=== PATIENT | male | born 2000 | race Two or more races ===

== ENCOUNTER 2018-02-25 07:06 | Emergency (ER) | payer OTHER ==
[2018-02-25 08:33] LABS: ABSOLUTE EOSINOPHILS # (AUTO) 0.2 10^3/uL (0.0-0.6); ABSOLUTE LYMPHOCYTES (AUTO) 2.3 10^3/uL (0.5-4.7); ABSOLUTE MONOCYTES (AUTO) 0.7 10^3/uL (0.1-1.4); ABSOLUTE NEUT (AUTO) 4.4 10^3/uL (1.7-8.2); BASOPHILS % (AUTO) 0.6 % (0-2); EOSINOPHILS % (AUTO) 2.3 % (0-6); HEMATOCRIT 44.1 % (37.9-51.0); HEMOGLOBIN 14.9 g/dL (13.5-17.0); LYMPHOCYTES % (AUTO) 30.6 % (13-45); MEAN CORPUSCULAR HEMOGLOBIN 28.6 pg (27.0-33.4); MEAN CORPUSCULAR HGB CONC 33.9 g/dL (32.0-36.0); MEAN CORPUSCULAR VOLUME 85 fl (80-97); MONOCYTES % (AUTO) 8.8 % (3-13); PLATELET COUNT 291 10^3/uL (150-450); RED BLOOD COUNT 5.21 10^6/uL (4.35-5.55); RED CELL DISTRIBUTION WIDTH 13.9 % (11.5-14.0); SEGMENTED NEUTROPHILS % (AUTO) 57.7 % (42-78); TOTAL CELLS COUNTED % (AUTO) 100 %; WHITE BLOOD COUNT 7.6 10^3/uL (4.0-10.5)
[2018-02-25 08:35] LABS: APPEARANCE,URINE CLEAR; BILIRUBIN,URINE NEGATIVE (NEGATIVE); COLOR,URINE YELLOW; GLUCOSE, URINE NEGATIVE (NEGATIVE); KETONES,URINE NEGATIVE (NEGATIVE); LEUKOCYTE ESTERASE,URINE NEGATIVE (NEGATIVE); NITRITE,URINE NEGATIVE (NEGATIVE); PROTEIN,URINE NEGATIVE (NEGATIVE); URINE SPECIFIC GRAVITY 1.024; UROBILINOGEN,URINE NEGATIVE mg/dL (<2.0)
[2018-02-25 08:53] LABS: ALANINE AMINOTRANSFERASE 48 U/L (10-40); ALBUMIN 4.8 g/dL (3.7-5.6); ALKALINE PHOSPHATASE 64 U/L (65-260); ANION GAP 14 (5-19); ASPARTATE AMINO TRANSFERASE 41 U/L (10-45); BILIRUBIN,DIRECT 0.3 mg/dL (0.0-0.4); BILIRUBIN,TOTAL 0.5 mg/dL (0.2-1.3); BLOOD UREA NITROGEN 16 mg/dL (7-20); CALCIUM 9.6 mg/dL (8.4-10.2); CARBON DIOXIDE 25 mmol/L (22-30); CHLORIDE 108 mmol/L (98-107); CREATINE KINASE 343 U/L (55-170); GLUCOSE 67 mg/dL (75-110); POTASSIUM 4.6 mmol/L (3.6-5.0); SODIUM 146.7 mmol/L (137-145); TOTAL PROTEIN 8.6 g/dL (6.3-8.2)
[2018-02-25 09:05] LABS: CREATINE KINASE MB 1.98 ng/mL (<4.55); TROPONIN I < 0.012 ng/mL
--- NOTE | 2018-02-25 09:51 | RADIOLOGY REPORT (SQ) ---
EXAM DESCRIPTION: CT HEAD WITHOUT COMPLETED DATE/TIME: 02/25/2018 9:34 am REASON FOR STUDY: syncope COMPARISON: None. TECHNIQUE: Axial images acquired through the brain without intravenous contrast. Images reviewed wi th bone, brain and subdural windows. Additional sagittal and coronal reconstructions were generated. Images stored on PACS. All CT scanners at this facility use dose modulation, iterative reconstruction, and/or weight based d osing when appropriate to reduce radiation dose to as low as reasonably achievable (ALARA). [facility]: Dose Right [facility]: CareDose [facility]: Dose Right [facility]: Teradose 4D [facility]: Guerrilla RF RADIATION DOSE: CT Rad equipment meets quality standard of care and radiation dose reduction techniq ues were employed. CTDIvol: 53.2 mGy. DLP: 1097 mGy-cm. mGy. LIMITATIONS: None. FINDINGS: VENTRICLES: Normal size and contour. CEREBRUM: No masses. No hemorrhage. No midline shift. No evidence for acute infarction. Normal gra y/white matter differentiation. No areas of low density in the white matter. CEREBELLUM: No masses. No hemorrhage. No alteration of density. No evidence for acute infarction. EXTRAAXIAL SPACES: No fluid collections. No masses. ORBITS AND GLOBE: No intra- or extraconal masses. Normal contour of globe without masses. CALVARIUM: No fracture. PARANASAL SINUSES: No fluid or mucosal thickening. SOFT TISSUES: No mass or hematoma. OTHER: No other significant finding. IMPRESSION: NORMAL BRAIN CT WITHOUT CONTRAST. EVIDENCE OF ACUTE STROKE: NO. COMMENT: Quality ID # [id number]: Final reports with documentation of one or more dose reduction techniques (e.g., Automated exposure control, adjustment of the mA and/or kV according to patient size, use of iterative reconstruction technique) TECHNICAL DOCUMENTATION: JOB ID: [id number] [employer]- All Rights Reserved Reading location - IP/workstation name: [email or web address]
[2018-02-25] MEDS: NORMAL SALINE 1000 ML 1,000 ML IV PRN ×2 (10:14→10:18)
--- NOTE | 2018-02-25 12:07 | ER Document Report ---
ED General - General Chief Complaint: Passed Out Prior to Arrival Stated Complaint: DIZZINESS Time Seen by Provider: 02/25/18 08:50 TRAVEL OUTSIDE OF THE [place] IN LAST 30 DAYS: No - HPI Notes: Patient coming in for evaluation of 2 syncopal episodes. 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 Patient has no other past medical history except for passing out a few days prior due to heat exhaustion while doing PT in the afternoons. Patient states no other extraneous activity other than his regular scheduled PT in the afternoons on days. No recent marches no recent fun runs patient otherwise is resting comfortably, evaluation denies any head pain chest pain abdominal pain prior to during or after any of the falls patient states he did hit his nose and currently his nose is hurting. - Related Data Allergies/Adverse Reactions: No Known Allergies Allergy (Unverified 02/25/18 07:13) Past Medical History - Social History Smoking Status: Never Smoker Chew tobacco use (# tins/day): No Frequency of alcohol use: None Drug Abuse: None Family History: None Patient has suicidal ideation: No Patient has homicidal ideation: No Renal/ Medical History: Denies: Hx Peritoneal Dialysis Review of Systems - Review of Systems Constitutional: No symptoms reported EENT: No symptoms reported Cardiovascular: Syncope Respiratory: No symptoms reported Gastrointestinal: No symptoms reported Genitourinary: No symptoms reported Male Genitourinary: No symptoms reported Musculoskeletal: No symptoms reported Skin: No symptoms reported Hematologic/Lymphatic: No symptoms reported Neurological/Psychological: No symptoms reported -: Yes All other systems reviewed and negative Physical Exam - Vital signs Vitals: Temp Pulse Resp BP Pulse Ox 98.9 F 71 16 134/51 H 99 02/25/18 07:17 02/25/18 07:17 02/25/18 07:17 02/25/18 07:17 02/25/18 07:17 Interpretation: Normal - General General appearance: Appears well, Alert - HEENT Head: Normocephalic, Atraumatic Eyes: Normal Pupils: PERRL - Respiratory Respiratory status: No respiratory distress Chest status: Nontender Breath sounds: Normal Chest palpation: Normal - Cardiovascular Rhythm: Regular Heart sounds: Normal auscultation Murmur: No - Abdominal Inspection: Normal Distension: No distension Bowel sounds: Normal Tenderness: Nontender Organomegaly: No organomegaly - Back Back: Normal, Nontender - Extremities General upper extremity: Normal inspection, Nontender, Normal color, Normal ROM , Normal temperature General lower extremity: Normal inspection, Nontender, Normal color, Normal ROM , Normal temperature, Normal weight bearing. No: Sarah's sign - Neurological Neuro grossly intact: Yes Cognition: Normal Orientation: AAOx4 Lyn Coma Scale Eye Opening: Spontaneous [place] Coma Scale Verbal: Oriented Lyn Coma Scale Motor: Obeys Commands [place] Coma Scale Total: 15 Speech: Normal Motor strength normal: LUE, RUE, LLE, RLE Sensory: Normal - Psychological Associated symptoms: Normal affect, Normal mood - Skin Skin Temperature: Warm Skin Moisture: Dry Skin Color: Normal Course - Re-evaluation Re-evalutation: 02/25/18 15:34 Patient able tolerate p.o. here. Laboratory studies orthostatics were otherwise negative. Patient was given IV fluids. Patient's EKG he has some slight variance in lead III and did discuss this with Dr. Alcazar solution professional for cardiology he was down bedside to evaluate the patient. States that at this time does not think there is any need for any further admission however did recommend that the patient follow-up in his office later this afternoon for 2D echo and Holter monitor placing. Patient does agree to this treatment plan. Again no critical etiology seen patient discharged home 02/25/18 15:34 The patient has syncope as the patient's syncope is not suggestive of pulmonary embolus, cardiac ischemia, aortic dissection, or other serious etiology. Given the extremely low risk of these diagnoses further testing and evaluation for these possibilities does not appear to be indicated at this time. The patient has been instructed to return if the symptoms worsen or change in any way. - Vital Signs Vital signs: Temp Pulse Resp BP Pulse Ox 98.9 F 68 20 118/60 100 02/25/18 13:05 02/25/18 13:05 02/25/18 13:05 02/25/18 13:05 02/25/18 13:05 - Laboratory Result Diagrams: 02/25/18 08:10 02/25/18 08:10 Laboratory results interpreted by me: 02/25/18 08:10 Sodium 146.7 H Chloride 108 H Glucose 67 L ALT 48 H Alkaline Phosphatase 64 L Creatine Kinase 343 H Total Protein 8.6 H Discharge - Discharge Clinical Impression: Syncope Qualifiers: Syncope type: unspecified Qualified Code(s): R55 - Syncope and collapse Condition: Good Disposition: HOME, SELF-CARE Instructions: Syncopal Episode ([facility]) Additional Instructions: Please follow-up with Dr. Alcazar's office this afternoon. Please make sure you are drinking plenty water to stay hydrated. Return to ER symptoms worsen follow -up with your primary care physician after you seen Dr. alcazar Referrals: NEPTALI ALCAZAR MD [ACTIVE STAFF] - Follow up as needed
[2018-02-25 13:06] VITALS: BP 118/60
--- NOTE | 2018-02-25 20:46 | PDOC CONSULTATION ---
Consultation Consult Date: 02/25/18 Attending physician:: HONORIO GUTIERREZ Consult reason:: Syncope History of Present Illness Admission Date/PCP: February 25, 2018 Patient complains of: Syncope History of Present Illness: KIMBERLY CHRISTIE is a 17 year old male patient coming in for evaluation of 2 syncopal episodes. 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 Patient has no other past medical history except for passing out a few days prior due to heat exhaustion while doing PT in the afternoons. Patient states no other extraneous activity other than his regular scheduled PT in the afternoons on days. No recent march no recent fun runs patient otherwise is resting comfortably, evaluation denies any head pain chest pain abdominal pain prior to during or after any of the falls patient states he did hit his nose and currently his nose is hurting. This history obtained by the ER physician was reviewed and confirmed. Patient denied any prior history of syncope or near syncope. Patient denied any family history of premature coronary artery disease or sudden cardiac . Patient claims inadequate sleep. Patient denies any illicit drug abuse. A CT scan was noted to be normal. Lab work was noted to be normal except for high serum sodium. Glucose noted to be borderline low at 67, creatinine kinase noted to be high. Patient denied any prior history of heart problem, congestive heart failure, cardiomyopathy patient claims that he does not have any exercise intolerance and is able to keep up with his friends. Past Medical History Medical History: None Past Surgical History Past Surgical History: Reports: None Social History Information Source: Patient - Negative for tobacco alcohol or illicit drug abuse. Smoking Status: Never Smoker Family History Family History: None Parental Family History Reviewed: Yes Children Family History Reviewed: Yes Sibling(s) Family History Reviewed.: Yes - Negative for premature coronary artery disease or sudden cardiac in immediate family members. Medication/Allergy Home Medications: No Home Medications 02/25/18 Allergies/Adverse Reactions: No Known Allergies Allergy (Unverified 02/25/18 07:13) Review of Systems Review of Systems: Please see history of present illness and past medical history as wall. Constitutional: No fever or chills reported. Head : No recent chronic headaches, recent head injury. Eyes: No recent eye pain, diplopia, redness, discharge, acute visual changes. Ears: No recent chronic ear pain, acute hearing loss, ear discharge. Oral cavity: No recent ulcerations, bleeding, oral cavity discomfort. Neck: No recent acute neck pain reported. Hematologic: No recent easy bruising or bleeding. Lymphatic: No recent lymph node enlargement reported. Cardiovascular system review: See history of present illness. Respiratory system review: No hemoptysis or blood clots in the lungs reported. Gastrointestinal system review: Negative for any recent acute hematemesis, melena. Genitourinary system review: No recent acute or chronic hematuria, flank pain, UTI etc. reported. Skin system review: Negative for any recent abnormal bruising, no rash, no pruritus reported. Neurologic: No prior history of strokes, mini strokes, seizure disorder. Psychologic: No history of major psychosis or major depression reported. Musculoskeletal: Minor aches and pains reported. No acute joint swelling reported. Endocrine: No recent polyuria, polydipsia, recent heat or cold intolerance. Physical Exam Vital Signs: Temp Pulse Resp BP Pulse Ox 98.9 F 68 20 118/60 100 02/25/18 13:05 02/25/18 13:05 02/25/18 13:05 02/25/18 13:05 02/25/18 13:05 Intake & Output 02/24/18 02/25/18 02/26/18 06:59 06:59 06:59 Weight 103.3 kg Exam: GENERAL: well-nourished and in no acute distress. Alert and oriented x3 HEAD: Atraumatic, normocephalic. EYES: Pupils equal round and reactive to light, extraocular movements intact, sclera anicteric, conjunctiva are normal. ENT: TMs normal, nares patent, oropharynx clear without exudates. Moist mucous membranes. No oral ulcerations or bleeding gums noted NECK: supple without lymphadenopathy. Trachea is central. No cervical or axillary lymphadenopathy noted. Carotids are 2+, JVD WNL LUNGS: Respiration seems nonlabored, no significant accessory muscle action noted. Breath sounds clear to auscultation bilaterally and equal noted. No wheezes rales or rhonchi noted. No significant dullness noted on percussion. CHEST: Palpation of the chest wall shows no significant chest wall tenderness. 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 ABDOMEN: Soft, no significant tenderness appreciated, normoactive bowel sounds. No guarding, no rebound. No rigidity noted . No masses appreciated. EXTREMITIES: Pedal pulses are 1-2+, no calf tenderness noted. No clubbing or cyanosis. negative pedal edema noted NEUROLOGICAL: Focused neurological exam showed no significant neurologic deficit. Normal speech, no focal weakness appreciated. PSYCH: Normal mood, normal affect. Judgment and insight within normal limits. SKIN: No significant ecchymosis, skin is noted to be warm. MUSCULOSKELETAL EXAM: No significant acute joint swelling noted. Results Laboratory Results: 02/25/18 08:10 02/25/18 08:10 02/25/18 02/25/18 02/25/18 07:56 08:10 08:10 WBC 7.6 RBC 5.21 Hgb 14.9 Hct 44.1 MCV 85 MCH 28.6 MCHC 33.9 RDW 13.9 Plt Count 291 Seg Neutrophils % 57.7 Lymphocytes % 30.6 Monocytes % 8.8 Eosinophils % 2.3 Basophils % 0.6 Absolute Neutrophils 4.4 Absolute Lymphocytes 2.3 Absolute Monocytes 0.7 Absolute Eosinophils 0.2 Absolute Basophils 0.0 Sodium 146.7 H Potassium 4.6 Chloride 108 H Carbon Dioxide 25 Anion Gap 14 BUN 16 Creatinine 0.83 Est GFR ( Amer) > 60 Est GFR (Non-Af Amer) > 60 Glucose 67 L Calcium 9.6 Total Bilirubin 0.5 AST 41 ALT 48 H Alkaline Phosphatase 64 L Total Protein 8.6 H Albumin 4.8 Urine Color YELLOW Urine Appearance CLEAR Urine pH 5.0 Ur Specific [place] 1.024 Urine Protein NEGATIVE Urine Glucose (UA) NEGATIVE Urine Ketones NEGATIVE Urine Blood NEGATIVE Urine Nitrite NEGATIVE Ur Leukocyte Esterase NEGATIVE Urine WBC (Auto) 1 Urine RBC (Auto) 1 02/25/18 02/25/18 08:10 08:10 Creatine Kinase 343 H CK-MB (CK-2) 1.98 Troponin I < 0.012 EKG Comments: Sinus rhythm, incomplete right bundle branch block pattern, borderline Q waves only in lead III., No acute ST-T wave changes are noted. No evidence of Brugada syndrome. Impressions: Head CT 02/25/18 09:07 IMPRESSION: NORMAL BRAIN CT WITHOUT CONTRAST. EVIDENCE OF ACUTE STROKE: NO. Assessment & Plan - Diagnosis (1) Syncope Qualifiers: Syncope type: unspecified Qualified Code(s): R55 - Syncope and collapse Is this a current diagnosis for this admission?: Yes - Notes Notes: Syncope: The cause is undetermined at this time. There could be multiple differential diagnosis. This includes vasovagal/neurocardiogenic syncope in this patient's age group, hypotension secondary to orthostasis, seizure disorder , hypoglycemia et cetera. Both tyron and tachyarrhythmias are possible. Discussed that other serious causes are possible and that syncope should be taken seriously. Patient was told to come to my office after discharge from the ER to have a cardiac event monitor placed and also to have further testing as scheduled which should include an echocardiogram, a tilt table study and possibly a stress test. This was clearly explained to the patient. The ER physician was informed of this plan. Discussed with ER physician Dr. Gutierrez. - Time Time Spent: 30 to 50 Minutes - Patient to report any further problems and to report to the office this afternoon. Medications reviewed and adjusted accordingly: Yes
--- NOTE | 2018-02-26 00:19 | EKG REPORT ---
SEVERITY:- ABNORMAL ECG - SINUS RHYTHM IVCD, CONSIDER ATYPICAL RBBB : Confirmed by: Nel Nuno MD 26-Feb-2018 00:18:29
== END 2018-02-25 13:06 | disposition home or self-care (01) ==
LOC: ER 07:06
DX: R55 Syncope and collapse (principal); R42 Dizziness and giddiness
CPT/HCPCS: 93005; 99284; 96360; 36415; 82553; 82550; 85025; 80053; 81001; 84484; 70450; 93010; J7030